=== PATIENT | female | born 1995 | race Two or more races ===

== ENCOUNTER → 2022-04-11 | Emergency (ER) | payer OTHER ==
[~2022-04-11] VITALS: Ht 154.9 cm; Wt 57.2 kg
[~2022-04-11] MED LIST: PRENA1 TRUE CO1 EACH PO
== END | disposition home or self-care (01) ==
LOC: ER 10:31
DX: O20.9 Hemorrhage in early pregnancy, unspecified (principal); Z3A.15 15 weeks gestation of pregnancy

== ENCOUNTER 2022-05-23 13:03 | Outpatient (CLI) | payer OTHER | END 2022-05-23 13:43 | disposition home or self-care (01) | LOC: PRENATAL 13:03 | PROVIDERS: ATTEND Obstetrics & Gynecology Maternal & Fetal Medicine | DX: Z03.79 Encounter for other suspected maternal and fetal conditions ruled out (principal) ==

== ENCOUNTER 2022-06-13 09:13 | Outpatient (CLI) | payer OTHER | END 2022-06-13 10:36 | disposition home or self-care (01) | LOC: PRENATAL 09:13 | PROVIDERS: ATTEND Obstetrics & Gynecology Maternal & Fetal Medicine | DX: O35.0XX0 Maternal care for (suspected) central nervous system malformation in fetus, not applicable or unspecified (principal); O35.3XX0 Maternal care for (suspected) damage to fetus from viral disease in mother, not applicable or unspecified; Z3A.28 28 weeks gestation of pregnancy ==